=== PATIENT | male | born 1940 | race Two or more races ===

== ENCOUNTER 2024-05-16 08:11 | Inpatient (IN) | payer MEDICARE, OTHER, SELFPAY ==
[2024-05-14 13:32] VITALS: BMI 37.5
[2024-05-14 15:04] LABS: Hematocrit 31.3 % (39.0-52.0); Hemoglobin 9.9 g/dL (13.0-18.0); Mean Corp Hgb Conc. 31.6 g/dL (33.0-37.0); Mean Corpuscular Hgb 29.7 pg (27.0-31.0); Platelet Count 344 10^3/uL (130-400); Red Blood Cell Count 3.33 10^6/uL (4.70-6.10); Red Cell Dist. Width 13.2 % (11.5-14.5); White Blood Cell Count 13.1 10^3/uL (4.8-10.8)
[2024-05-14 15:11] LABS: INR 1.22; PT 15.9 Sec (11.4-14.6)
[2024-05-14 15:12] LABS: APTT 41.8 Sec (23.4-35.0)
[2024-05-14 15:37] LABS: ALT (SGPT) 16 U/L (0-50); AST (SGOT) 18 U/L (17-59); Albumin 3.4 g/dl (3.5-5.0); Alkaline Phosphatase 103 U/L (38-126); Blood Urea Nitrogen 21 mg/dl (9-20); Calcium 8.7 mg/dl (8.4-10.2); Carbon Dioxide 27 mmol/L (22-30); Chloride 101 mmol/L (98-107); Estimated Creatinine Clearance 46 ml/min; Glucose 143 mg/dl (70-99); Potassium 3.8 mmol/L (3.5-5.1); Sodium 137 mmol/L (135-145); Total Bilirubin 0.9 mg/dl (0.2-1.3); Total Protein 6.7 g/dl (6.3-8.2); eGFR 50.49
--- NOTE | 2024-05-15 09:41 | PTCARENOTE ---
Abn Hgb, PTT, Creatinine, Dr. Matt's office made aware.
[2024-05-16] VITALS (15 sets, daily range): BP systolic 131–177; BP diastolic 46–85; BMI 37.5
[2024-05-16] MEDS: HEPARIN 5000 UNITS SC ×2 (08:59→19:33)
[2024-05-16] MEDS: NEURONTIN 300 MG PO (09:00)
[2024-05-16] MEDS: TYLENOL 1000 MG PO (09:00)
[2024-05-16] MEDS: NORMOSOL-R/PLASMALYTE-A 1000 IV (09:01)
--- NOTE | 2024-05-16 09:20 | OR.RPT ---
Operative Report
Operative Report
Date of Operation: May 16, 2024
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
Postoperative Diagnosis: Same
Surgeon: Sang Matt M.D.
Operation: �Right Axillary Lymph Node Dissection - 82164
Anesthesia: General Anesthesia
Estimated Blood Loss: 10 cc
Drains: None
Specimen: Level I & II Axillary Contents
Complications: �None
Procedure:The patient was taken to the operating room and placed in the usual supine position. After adequate general anesthesia was established, the patient's right axillary area was prepped and draped in the usual sterile fashion. The curvilinear
incision was made around the hair-bearing area in the right axilla. The flaps were created medially to the chest wall, inferiorly to the serratus anterior muscle, laterally to the lateral border of the latissimus dorsi muscle, and superiorly to the
axillary vein. Grossly, large lymph nodes were identified. The level I lymph node dissection was performed by dissecting the specimen away from the axillary vein, the chest wall, and the lateral border of the latissimus muscle. The level II lymph
nodes were dissected from under the right pectoralis minor muscle. During this process, long thoracic and thoracodorsal nerves were identified and preserved throughout their courses. The axillary contents in levels I and II were removed and sent to
pathology for evaluation. Hemostasis was obtained. A medium EL drain was placed in the axilla through a separate, inferior stab incision and anchored to the skin using #3-0 Prolene suture. The subcutaneous tissue was reapproximated with # 3-0
Vicryl, and the skin was reapproximated with #4-0 Monocryl in a running subcuticular fashion. The patient tolerated the procedure well. The final instrument, needle, and sponge counts were correct. The patient was transferred to the recovery room.
--- NOTE | 2024-05-16 13:35 | HPS.HSE ---
Family Physician
-
Family Physician: Jeanmarie Rider
Chief Complaint
-
Status post lap abdomen with new liver mets
History of Present Illness
83-year-old male from home states he has been having upper abdominal pain with indigestion since approximately February. His has been having him take Tums stating it is indigestion. He has been sleeping in a recliner approximately since mid
February until present due to inability to lie down, orthopnea, pulse ox consistently low 92-93%. He reports his Lasix was stopped several weeks ago and he has developed increased edema in his left lower extremity compared to right but is still is
bilaterally. He states mid April his abdominal became became severe he drove himself to [facility] where he had a cholecystectomy with postop drain and biopsy showing primary gallbladder cancer. He states drain was removed after 1 week.
While inpatient he did develop JANICE he has been off of his olmesartan and diuretics furosemide since that time. For the past week he has noticed his pulse ox running 85 to 94% approximately at night when he tries to lie down along with leg edema,
orthopnea and shortness of breath. His stopped his olmesartan for the past week. He denies cough, fever, chills, headache, chest pain, palpitations, shortness of breath, abdominal pain, nausea, vomiting, diarrhea, urinary symptoms,, rash,
sick contacts. Today he is Status post Exploratory LAP with findings of LIVER METS and plan for eventual chemotherapy. He follows with Dr. Mcginnis cardiology at [facility] he states he had recent echo and office that was normal. Known history of
PACs unsure history of RBBB which was found on EKG 4 days ago and today. He follows with PCP Dr. Jeanmarie Arellano who practices near [facility]. He has past medical history of hypertension, GERD, chronic memory impairment short-term
worse than long, PACs, gallbladder cancer status post cholecystectomy Dx April 2024 at [facility], ambulatory dysfunction uses cane at baseline, nonrheumatic mitral valve regurg, erectile dysfunction, obesity, diverticulitis with perforation
status post bowel resection 1997, ventral hernia repair with possible mesh.
Medical History
Past Medical History
Past Medical History: Reports Other
Additional Past Medical History:
hypertension
? CHF�diastolic
GERD
chronic memory impairment short-term worse than long
PACs
New liver mets status post lap abdomen today 05/16/2024
NEW Gallbladder cancer status post cholecystectomy Dx April 2024 at [facility]
ambulatory dysfunction uses cane at baseline
nonrheumatic mitral valve regurg
erectile dysfunction
obesity, diverticulitis with perforation status post bowel resection 1997
ventral hernia repair with possible mesh
Past Surgical History: Reports Other
Additional Past Surgical History:
Ventral hernia repair with possible mesh
Appendectomy
Diverticulitis with perforation and colon resection 1997
Status post cholecystectomy secondary to gallbladder cancer April 2024 [facility]
Social History
Tobacco: Non-smoker
Alcohol: None
Drug: None
Personal:
Living: With Family ( Vania)
Employment: Retired
Family History
Family History: Other (No history of cancer. States father complications COPD was heavy smoker, mother history of DM2 unsure why she is )
Allergies / Home Medications
Allergies reflects when Allergies were last updated in [employer].
Home Medications with original date entered in [employer]
Allergy/Medication List:
Allergies
Allergy/AdvReac Type Severity Reaction Status Date / Time
No Known Allergies Allergy Unverified 05/16/24 08:43
Home Medications
acetaminophen 325 mg tablet (Tylenol) 650 mg PO Q4H PRN pain 05/14/24
ibuprofen 200 mg tablet 400 mg PO Q6H PRN pain 05/14/24
olmesartan 40 mg tablet 40 mg PO DAILY 05/14/24
pantoprazole 40 mg tablet,delayed release 40 mg PO DAILY 05/14/24
Review of Systems
-
History Source: Patient
A 12 point ROS was completed and negative except as noted: Yes
Constitutional: Denies Fever or Chills
EENT: Denies Sore Throat
Respiratory: Reports Trouble Breathing and Other (Orthopnea, hypoxia); Denies Cough
Cardiac: Denies Chest Pain, Diaphoresis, Palpitations or Syncope
Abdomen/GI: Denies Abdominal Pain, Nausea, Vomiting, Diarrhea, Constipated, Bloody Stools or Black Stools
: Denies Dysuria, Flank Pain, Incontinence, Difficulty Voiding, Urgency, Bleeding or Dark Urine
Musculoskeletal: Reports Edema (+2 left lower extremity, +1 right lower extremity); Denies Joint Pain
Skin: Denies Itching or Rash
Neurological: Denies Dizzy, Headache, Weakness or Numbness
Endocrine: Reports No Symptoms
Hematologic/Lymphatic: Reports No Symptoms
Psych: Reports Calm
Physical Exam
Vital Signs
Vital Signs
Temp Pulse Resp BP Pulse Ox
97.2 F 84 17 165/65 94
05/16/24 12:15 05/16/24 13:30 05/16/24 13:30 05/16/24 13:15 05/16/24 13:30
Physical Exam
General: Comfortable and Conversant; No Pain, Fever or Chills
HEENT: NormoCephalic, Anicteric, Moist mucous membranes, PERRLA, Garceno Conjunctivae and No Ptosis
Respiratory: Rales (Course bilateral bases right greater than left); No Wheezes or Rhonchi
Cardiac: S1/S2, Regular Rhythm and Peripheral Edema (Bilateral left +2, right +1); No Murmur, Rub, Gallop or JVD
Breast: Deferred by me
GI: Soft, Non Tender, Non Distended, Normal Bowel Sounds and Other (Multiple laparoscopic sites with Dermabond in place no reported abdominal pain)
Genito-urinary: Deferred by me
Musculoskeletal: No Clubbing, No Cyanosis, Edema, Left Lower Extremity (+2) and Edema, Right Lower Extremity (+1); No Edema, Left Upper Extremity or Edema, Right Upper Extremity
Skin: Warm and Dry; No Rash
Neuro: AO x 3 (But reports history of short-term memory impairment), Nonfocal/grossly intact, Cranial Nerves Intact and Other (Chronic [place] has hearing aids at home); No Slurred Speech, Facial Droop, Tremors or Sedated
Psych: Calm
Laboratory Results
-
05/14/24 12:28
05/14/24 12:28
Laboratory Results
PT 15.9 Sec (11.4-14.6) H 05/14/24 12:28
INR 1.22 05/14/24 12:
APTT 41.8 Sec (23.4-35.0) H 05/14/24 12:28
Total Bilirubin 0.9 mg/dl (0.2-1.3) 05/14/24 12:
AST 18 U/L (17-59) 05/14/24 12:28
ALT 16 U/L (0-50) 05/14/24 12:28
Alkaline Phosphatase 103 U/L (38-126) 05/14/24 12:28
Data Reviewed
-
Lab Data: Labs Reviewed by me
Impression/Plan
-
Impression/plan:
Admit to TELE
#Acute hypoxic respiratory insufficiency secondary to Acute CHF possible history chronic CHF
Labs 05/14/2024 WBC 13.1 with INR 1.22
Symptoms of orthopnea, pitting edema to knees x 1 week Home O2 running 85-94%, baseline 92-93% per patient
-Check stat CBC with differential, CMP, BNP
-Check I/O, daily weights
-Consult CBC Cardiology
-Obtain records from Dr. Rahel Dumont including recent echo, EKG
-Check CXR, bnp
-IV Lasix 40 mg now once, currently pending CMP further diuresis per cardiology
Follow CBC, CMP
-Consult PT/OT/case management
#Peripheral edema left greater than right concern for possible DVT
-Check bilateral venous Dopplers
-Will give current heparin subcu if DVT present plan will change
#EKG with RBBB unclear if old
-Obtaining records from Dr. Mcginnis [facility] including EKG and echo
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
-status postcholecystectomy April 2024 [facility] showing primary gallbladder cancer
Obtain records from [facility] April 2024
Patient given preop 2 g Ancef, gabapentin 300 mg once
-Tylenol, oxycodone, Dilaudid, Zofran as needed, bowel regimen
-Consult Oncology- Dr White
-Consult Dr. Sang Matt
-Tylenol, oxycodone moderate pain, Dilaudid severe pain
-Follow CBC, CMP
#JANICE on CKD stage IIIb
Creat 1.4 on 05/14/2024
-Repeat CMP today
#HTN-benign
BP 177/75
-IV hydralazine 5 mg every 6 hours scheduled
-Hold Olmesartan 40 mg daily due to JANICE
#CAD/CO
Last stress test and echo 2021 reportedly negative from [facility]
-Patient used to be on aspirin 81 mg daily unclear when stopped
#HLD
-History of LDL less than 130 no statins were started in the past
#GERD
-Continue Protonix 40 mg daily
#Memory impairment per patient short-term course
-Patient is oriented x 3 however forgetful of some things he states
#Chronic ambulatory dysfunction uses cane at baseline
-Consult PT/OT
#Hx diverticulitis with perforation status post bowel resection 1997
#Class I obesity due to excess calorie consumption�BMI 37.5
Weight loss recommended
Affects all aspects of care
Low-fat healthy heart diet
DVT prophylaxis
Subcutaneous heparin pending venous Doppler bilateral legs
Full code per patient
[2024-05-16 14:41] LABS: % Basophils 0.2 % (0-2); % Immature Granulocytes 0.8 % (0-0.5); % Lymphocytes 2.8 % (20.5-51.1); % Monocytes 2.5 % (1.7-9.3); % Neutrophils 93.7 % (42.2-75.2); Absolute Immature Granulocytes 0.1 10^3/uL (0-0.05); Absolute Lymphocytes 0.4 10^3/uL (1.2-3.4); Absolute Monocytes 0.3 10^3/uL (0.1-0.6); Absolute Neutrophils 12.2 10^3/uL (1.4-6.5); Hematocrit 30.5 % (39.0-52.0); Hemoglobin 9.8 g/dL (13.0-18.0); Mean Corp Hgb Conc. 32.1 g/dL (33.0-37.0); Mean Corpuscular Hgb 30.2 pg (27.0-31.0); Mean Corpuscular Volume 94.1 fL (80.0-94.0); Mean Platelet Volume 10.3 fL (7.4-10.4); Nucleated Red Blood Cells % 0 % (-); Platelet Count 326 10^3/uL (130-400); Red Blood Cell Count 3.24 10^6/uL (4.70-6.10); Red Cell Dist. Width 13.4 % (11.5-14.5)
[2024-05-16 14:53] LABS: ALT (SGPT) 17 U/L (0-50); AST (SGOT) 23 U/L (17-59); Albumin 3.2 g/dl (3.5-5.0); Alkaline Phosphatase 96 U/L (38-126); Blood Urea Nitrogen 22 mg/dl (9-20); Calcium 8.2 mg/dl (8.4-10.2); Carbon Dioxide 27 mmol/L (22-30); Chloride 102 mmol/L (98-107); Estimated Creatinine Clearance 53 ml/min; Glucose 209 mg/dl (70-99); Potassium 4.1 mmol/L (3.5-5.1); Sodium 139 mmol/L (135-145); Total Bilirubin 0.6 mg/dl (0.2-1.3); Total Protein 6.3 g/dl (6.3-8.2); eGFR > 60.00
--- NOTE | 2024-05-16 14:54 | OR.RPT ---
Operative Report
Operative Report
Date of Operation: May 16, 2024
Preoperative Diagnosis: �Gallbladder Cancer - C23
Postoperative Diagnosis: Same
Surgeon: Sang Matt M.D.
Operation: �Laparoscopy - 10729, Resection of the left lateral liver tumor - 34993, and resection of two peritoneal nodules
Anesthesia: General Anesthesia
Estimated Blood Loss: 10 cc
Drains: None
Specimen: two peritoneal nodules and left lateral hepatic tumor
Findings: Extensive adhesion, right-sided abdominal wall tumor, cemented gallbladder fossa and portal area with extreme scarring from his previous cholecystectomy about 1 month ago
Complications: None
Procedure:
The patient was taken to the operating room and placed in the usual supine position. After adequate general endotracheal anesthesia was established, the patient's abdomen was prepped and draped in the usual sterile fashion. There was an obvious hard
mass measuring about 10 cm in diameter was palpated on the right side of the abdomen. At this time, a 1.5 cm incision was made in the left upper quadrant of the abdomen, and then, using the open Donita technique, the abdominal cavity was entered. A
12 mm trocar was placed, and the abdomen was insufflated to 15 millimeters of Hg pressure.
The camera was placed, and significant adhesions were noted throughout the intraperitoneal cavity. Another 5 mm trocar was placed in the right lower quadrant under the direct vision. Dense adhesions were noted in the right upper quadrant of her
abdomen, cementing the 10 cm mass to the abdominal wall, gallbladder fossa, and portal area. There were no obvious planes to dissect. Attempts were made to peel the tumor off the abdominal wall and liver without success. The lysis of adhesions
continued in the left upper quadrant of the abdomen. During this process, several peritoneal nodules were identified. Two of them were biopsied and sent to pathology for a frozen section, which revealed no obvious evidence of malignancy.
There was approximately a 0.5 � 1 cm mass in the left lateral liver lobe identified. This was carefully resected using a harmonic scalpel. The tumor was completely removed and sent to pathology for a frozen section, which also revealed no obvious
evidence of malignancy.
I scrubbed out of the OR to discuss the above findings with the family. I informed them about the right-sided abdominal tumor and extensive scarring involving the abdominal tumor to the abdominal wall, liver, gallbladder fossa, and portal area. I
explained that it is very difficult to figure out what is benign scar tissue versus cancer. We discussed the patient�s two options, which include proceeding with open laparotomy for further exploration versus stopping surgery, obtaining an abdominal
CT to define the abdominal tumor better, perhaps obtaining a core needle biopsy, starting neoadjuvant chemotherapy to give time for scar tissue to resolve, then making another attempt to resect in 3-6 months. The family opted for the latter
approach. I contacted his medical oncologist, Dr. Raimundo Mendoza, who agreed with the plan.
At this time, the trocars were removed. The 12-millimeter trocar site was closed in multiple layers. The fascia was closed using #1 Vicryl in an interrupted fashion. The skin was approximated with #4-0 Monocryl in a running subcuticular fashion. The
5-millimeter trocar site was also closed with #4 Monocryl in a running subcuticular fashion. Steri-strips and band-aides were applied. The patient was extubated. The final needle, sponge, and instrument counts were correct, and the patient was
transferred to the recovery room.
--- NOTE | 2024-05-16 15:24 | CON.CAR ---
Addendum entered and electronically signed by Adolph Irene MD 05/16/24 18:29:
I saw and examined the patient.
The MAINTENANCE JOURNEYMAN's note was reviewed and I agree with the note.
Primary station inspector Dr. Mcginnis
83 yo male with RBBB, HTN, diabetes,(diet-controlled), RBBB,h/oGIB, and gallbladder cancer s/p cholecystectomy 04/06/24 with liver tumor, who is s/p laparoscopic resection of left lateral liver tumor by Dr. Matt 05/16/24. Consulted for edema.
Patient says during his last hospitalization he had concern regarding his kidneys so they removed his antihypertensive medication with diuretic sounds as if he was on combination of olmesartan and HCTZ. Patient's said he had edema when he left
the hospital that got better and his weights were stable then suddenly he was 6 pounds more the day he came in for his surgery. No complaints of increased shortness of breath no chest pain no history of coronary artery disease. Echocardiogram
today shows normal left ventricular function, mild aortic stenosis mild to moderate aortic regurgitation. On exam patient's breathing comfortably without clear evidence of JVD lungs are clear cardiac exam is regular rate and rhythm abdomen is
mildly distended but soft postop from laparoscopic surgery. Extremities bilateral lower extremity edema which includes some posterior thigh edema.
-Edema extremities may be multifactorial. Patient may have come component of heart failure with preserved ejection fraction. Sounds as if he may have had increased edema after being taken off his diuretic during the last hospitalization. Patient
is also on gabapentin which could be a contributing factor.
-Venous ultrasound
-Appears patient's had a good response to IV diuretic that was already given. Monitor weights, I's and O's and renal function. Caution not to overdiuresis in this patient that reported concern regarding his kidneys during the last hospitalization.
Decision regarding additional diuretics based on follow-up labs tomorrow and amount of output with the Lasix 40 mg IV he was given.
-Postoperative care as directed by Dr. Matt
-Patient can follow-up with PCP and Dr. Mcginnis after discharge
Original Note:
Consultation
Consultation Request
Date/Time Consultation Requested: 05/16/24 2:45p
Date/Time Consultation Performed: 05/16/24 3p
Requesting Provider: DIONNE Mcdaniel
Performing Provider: DIONNE Aguirre for Dr. Irene
Reason for Consultation: concern for acute CHF, LE edema
Medical History
-
Chief Complaint: gallbladder cancer with liver tumor
History of Present Illness:
Mr. Araya is an 83 yo male with HTN, diet controlled diabetes, PVCs, RBBB, prior GIB, and gallbladder cancer s/p cholecystectomy 04/06/24 with liver tumor, who is s/p laparoscopic resection of left lateral liver tumor by Dr. Matt 05/16/24. We are
consulted for b/l LE edema, concern for acute CHF. He denies any respiratory symptoms now or as an outpatient. He states being admitted at [facility] last month with RUQ pain, had cholecystectomy, and LLE edema started on Lasix that caused JANICE and
discontinuation of Lasix. He has noticed b/l LE edema returning slowly over the last week. He saw Dr. Mcginnis 05/12/2024 for surgical clearance and no further cardiac testing was ordered.
Past Medical History
Past Medical History: Other (as above)
Past Surgical History: Cholecystectomy
Social History
Tobacco: Non-Smoker
Alcohol: None
Personal:
Living: With Family
Employment: Retired
Family History
Family History: Reviewed & Not Pertinent
Allergies / Home Medications
Allergy/AdvReac Type Severity Reaction Status Date / Time
No Known Allergies Allergy Unverified 05/16/24 08:43
�Medication �Instructions �Recorded �Confirmed �Type
acetaminophen 325 mg tablet 650 mg PO Q4H PRN pain 05/14/24 05/16/24 History
(Tylenol)
ibuprofen 200 mg tablet 400 mg PO Q6H PRN pain 05/14/24 05/16/24 History
olmesartan 40 mg tablet 40 mg PO DAILY 05/14/24 05/16/24 History
pantoprazole 40 mg tablet,delayed 40 mg PO DAILY 05/14/24 05/16/24 History
release
Review of Systems
-
History Source: Patient
All other systems: Negative unless noted
Physical Exam
Vital Signs
Temp Pulse Resp BP Pulse Ox
97.6 F 76 22 160/55 96
05/16/24 15:00 05/16/24 15:00 05/16/24 15:00 05/16/24 14:45 05/16/24 15:00
Lab Results
05/16/24 14:28
05/16/24 14:28
Alh-G-Svahhjdidxq Pept Cancelled 05/16/24 14:41
Physical Exam
General: Well Developed and No Apparent Distress
HEENT: Normocephalic, Anicteric, Moist Mucous Membranes and Other ([place])
Respiratory: Clear and Non Labored Respirations
Cardiac: S1/S2, Regular Rhythm and Peripheral Edema (+2-3 pitting edema b/l LE)
Breast: Deferred by me
GI: Soft, Non Tender and Distended
Rectal: Brown and Deferred by Provider
Musculoskeletal: No Clubbing and No Cyanosis
Skin: Warm and Dry
Neuro: AO x 3
Psych: Calm
Impression / Plan
-
CHF - acute, unknown type/unknown LVEF.
- LE edema.
- CXR with mild CHF and proBNP 5470.
- check echo today.
- agree with IV Lasix.
- close monitoring of renal function.
- daily weights, I&Os.
HTN - elevated post-op.
- continue meds and monitor.
RBBB - chronic, stable.
PVCs/PACs - noted on tele, monitor.
- check echo today.
Gallbladder cancer - s/p cholecystectomy 04/06/24 with liver tumor, who is s/p laparoscopic resection of left lateral liver tumor by Dr. Matt 05/16/24.
- per Dr. Matt.
Data Reviewed
-
EKG: Tracing Personally Visualized and interpreted (SR with PACs 91 bpm, RBBB)
Radiology: Report Reviewed by me (cxr: Patchy parenchymal opacity within both lungs)
Labs: Labs Reviewed by me
[2024-05-16 15:40] LABS: NT-proBNP 5470 pg/ml
[2024-05-16] MEDS: LASIX 40 MG IV (15:57)
[2024-05-16] MEDS: APRESOLINE 5 MG IV (18:26)
--- NOTE | 2024-05-16 19:49 | W.PN.UPDATE ---
Update Note
Progress Note Update
This is an addendum to the H&P written by Maria Luisa Koehler on 05/16/2024. Patient seen and examined independently with THERMODYNAMICIST.
83-year-old male past medical history of CAD, CHF, GERD, chronic memory impairment, gallbladder cancer diagnosed 1 month ago, CKD 3b, hypertension, hyperlipidemia, diverticulitis with perforation status post bowel resection, obesity, here for
persistent abdominal pain.
Patient had his gallbladder removed at [facility] in April for gallbladder cancer. At that time he was noted to have JANICE and diuretics were held.
Patient had diagnostic laparoscopic arranged for today. He underwent diagnostic laparoscopy today and was found to have liver metastases.
Patient has been having increasing pitting edema and was noted by the anesthesiologist to be hypoxemic to 85% when flat. Due to this hospitalist have been requested to admit the patient for concern for heart failure.
Labs show leukocytosis, stable anemia. Cardiac BNP of 5400. Chest x-ray shows patchy parenchymal opacity within both lungs likely clinically pulmonary edema.
Patient given 40 of IV Lasix. Cardiology consulted. Patient has peripheral edema greater on the left side than the right and venous ultrasound negative for DVT.
Oncology consulted for gallbladder cancer with liver metastases. Abdominal pain is secondary to cancer pain which can be treated with Tylenol, oxycodone, Dilaudid.
Patient has elevated blood pressure due to stopping olmesartan last week. Renal function has improved to creatinine 1.2. Hold off on resuming olmesartan at this time due to diuresis. As needed hydralazine for now.
[2024-05-17] VITALS (8 sets, daily range): BP systolic 107–175; BP diastolic 53–65; PULSE 70–71; O2SAT 94; BMI 37.3
[2024-05-17] MEDS: APRESOLINE 5 MG IV ×3 (00:10→13:40)
[2024-05-17 07:30] LABS: % Basophils 0.1 % (0-2); % Immature Granulocytes 0.5 % (0-0.5); % Lymphocytes 8.2 % (20.5-51.1); % Monocytes 10.5 % (1.7-9.3); % Neutrophils 80.7 % (42.2-75.2); Absolute Immature Granulocytes 0.1 10^3/uL (0-0.05); Absolute Lymphocytes 0.8 10^3/uL (1.2-3.4); Absolute Neutrophils 7.3 10^3/uL (1.4-6.5); Hematocrit 27.1 % (39.0-52.0); Hemoglobin 8.9 g/dL (13.0-18.0); Mean Corp Hgb Conc. 32.8 g/dL (33.0-37.0); Mean Corpuscular Hgb 30.2 pg (27.0-31.0); Mean Corpuscular Volume 91.9 fL (80.0-94.0); Mean Platelet Volume 10.7 fL (7.4-10.4); Nucleated Red Blood Cells % 0 % (-); Platelet Count 326 10^3/uL (130-400); Red Blood Cell Count 2.95 10^6/uL (4.70-6.10); Red Cell Dist. Width 13.3 % (11.5-14.5); White Blood Cell Count 9.1 10^3/uL (4.8-10.8)
--- NOTE | 2024-05-17 07:48 | CON.ONC ---
Documented by User: DIONNE Kaur 05/17/24 10:26
Impression
Impression
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
CKD
anemia, unknown baseline
CHF
Plan
Plan
follow for surgical path
[facility] records will be obtained by my office in if pt decides to pursue further OP follow up for next steps in systemic treatment plan with [facility], however, he and his report that the plan to follow up with [facility] medical oncology program for next steps in oncology care.
check iron studies, b12, folate, retic, monitor for bleeding
post operative management per surgical service
CHF per cardiology
Medical oncology will sign off, Pt has OP follow up with [facility] medical oncology next week for continued management
Patient History
History of Present Illness
83yo M with newly diagnosed gallbladder malignancy diagnosed at [facility] who presented with hypoxia from home. He had ongoing indigestion since February 2024 for which he was taking tums and sleeping in a recliner. His abdominal pain became
severe and was admitted to [facility] april 2024. He underwent a cholecystectomy which pathology was diagnostic for gallbladder cancer (I do not have pathology report to confirm). His post operative course has been complicated by JANICE,
increasing LE edema, and hypoxia. 2D echo with LVEF 55-60%. B/L LE US negative for DVT. He underwent a diagnostic exploratory lap with Dr. Sang Matt 05/16/2024 that showed extensive adhesion, right-sided abdominal wall tumor, cemented gallbladder fossa
and portal area with extreme scarring from his previous cholecystectomy about 1 month ago. He had a resection of the left lateral tumor and 2 peritoneal nodules.
CBC today reveal WBC 9.1, Hgb 8.9, MCV 91.9, platelets 326,000, unknown Hgb baseline. CMP yesterday with Creatinine 1.2 and normal LFTS.
Clinically, he reports post operative pain for which he is taking tylenol.
at bedside during visit.
Past-Medical/Surgical History
PMH CAD, CHF, GERD, chronic memory impairment, gallbladder cancer, CKD 3b, hypertension, hyperlipidemia, diverticulitis, obesity
PSH cholecystectomy Apr 2024, laparoscopic resection left lever tumor 05/16/2024, bowel resection for perforation/diverticulitis 1997, ventral hernia repair, appendectomy
Social non-smoker, denies ETOH or recreational drugs. Retired,
Patient Medication
�Medication �Instructions �Recorded �Confirmed �Last Taken �Type
acetaminophen 325 mg tablet 650 mg PO Q4H PRN pain 05/14/24 05/16/24 05/15/24 History
(Tylenol)
ibuprofen 200 mg tablet 400 mg PO Q6H PRN pain 05/14/24 05/16/24 05/12/24 History
olmesartan 40 mg tablet 40 mg PO DAILY 05/14/24 05/16/24 05/14/24 History
pantoprazole 40 mg tablet,delayed 40 mg PO DAILY 05/14/24 05/16/24 05/14/24 History
release
Active Medications
Generic Name Dose Route Start Last Admin
Trade Name Freq PRN Reason Stop Dose Admin
Acetaminophen 650 mg 05/16/24 15:00
Acetaminophen 325 Mg Tablet PO 05/17/24 14:59
SDS-Q4HPRN PRN
mild pain
Acetaminophen 650 mg 05/16/24 14:46
Acetaminophen 325 Mg Tablet PO 06/13/24 14:45
Q4HPRN PRN
mild pain/ARTHUR/temp> 100.4F
Heparin Sodium 5,000 units 05/16/24 20:00 05/16/24 19:33
Heparin 5,000 Units/Ml 1 Ml Vial SC 06/13/24 19:59 5,000 units
Q12 YEVGENIY Administration
Hydralazine HCl 5 mg 05/16/24 18:00 05/17/24 06:00
Hydralazine 20 Mg/Ml Vial IV 06/13/24 17:59 5 mg
Q6 YEVGENIY Administration
Hydromorphone HCl 0.5 mg 05/16/24 08:14
Hydromorphone 0.5 Mg/0.5 Ml Syringe IV 05/17/24 08:14
PACU-Q5MPRN PRN
severe pain
Hydromorphone HCl 0.25 mg 05/16/24 08:14
Hydromorphone 0.25 Mg/0.5 Ml Syringe IV 05/17/24 08:14
PACU-Q5MPRN PRN
moderate pain
Hydromorphone HCl 0.5 mg 05/16/24 14:46
Hydromorphone 0.5 Mg/0.5 Ml Syringe IV 05/30/24 14:45
Q4HPRN PRN
severe pain
Parenteral Electrolytes 1,000 mls @ 100 mls/hr 05/16/24 08:15
Normosol-R/Plasmalyte-A IV 05/17/24 08:14
PER PROTOCOL YEVGENIY
Parenteral Electrolytes 1,000 mls @ 50 mls/hr 05/16/24 13:00 05/16/24 21:08
Normosol-R/Plasmalyte-A IV 05/17/24 08:59 Not Given
SDS-ONCE ONE
Meperidine HCl 12.5 mg 05/16/24 08:14
Meperidine 25 Mg/Ml Injection IV 05/17/24 08:14
PACU-Q5MPRN PRN
shivers
Ondansetron HCl 4 mg 05/16/24 08:14
Ondansetron 4 Mg/2 Ml Vial IV 05/17/24 08:14
PACU-ONCEPRN PRN
nausea/vomiting
Ondansetron HCl 4 mg 05/16/24 13:00
Ondansetron 4 Mg/2 Ml Vial IV 05/17/24 12:59
SDS-ONCEPRN PRN
nausea/vomiting
Ondansetron HCl 4 mg 05/16/24 14:46
Ondansetron 4 Mg/2 Ml Vial IV 06/13/24 14:45
Q6HPRN PRN
nausea and vomiting
Oxycodone HCl 5 mg 05/16/24 13:00
Oxycodone 5 Mg Regular Release Tablet PO 05/17/24 12:59
SDS-Q4HPRN PRN
moderate pain
Oxycodone HCl 10 mg 05/16/24 13:00
Oxycodone 10 Mg Regular Release Tablet PO 05/17/24 12:59
SDS-Q4HPRN PRN
severe pain
Oxycodone HCl 5 mg 05/16/24 14:46
Oxycodone 5 Mg Regular Release Tablet PO 05/30/24 14:45
Q4HPRN PRN
moderate pain
Pantoprazole Sodium 40 mg 05/17/24 08:00
Pantoprazole 40 Mg Delayed Release Tablet PO 06/14/24 07:59
DAILY YEVGENIY
Polyethylene Glycol 17 grams 05/17/24 08:00
Polyethylene Glycol Powder 17 Grams Packet PO 06/14/24 07:59
DAILY YEVGENIY
Prochlorperazine Edisylate 5 mg 05/16/24 08:14
Prochlorperazine 10 Mg/2 Ml Vial IV 05/17/24 08:14
PACU-ONCEPRN PRN
nausea/vomiting
Sodium Chloride 0 flush 05/16/24 16:00
Sodium Chloride 0.9% (Flush) Syringe IV 06/13/24 15:59
PER PROTOCOL YEVGENIY
Review of Systems
-
ROS notable for HPI, otherwise negative
Physical Exam
-
General: No Apparent Distress
HEENT: Moist Mucous Membranes; Negative Jaundice
Cardiology: Normal Sinus Rhythm
Pulmonary: Clear
GI: Soft and Distended
Extremities: Pulses Present and Edema (b/l LE)
Neurology: Non Focal and Other (forgetful)
Skin: Warm and Other (ab exlap site c/d/i)
Hematologic / Lymphatic: No Lymphadenopathy
Psych: Calm
Labs
Lab Results
WBC 9.1 10^3/uL (4.8-10.8) 05/17/24 06:47
RBC 2.95 10^6/uL (4.70-6.10) L 05/17/24 06:47
Hgb 8.9 g/dL (13.0-18.0) L 05/17/24 06:47
Hct 27.1 % (39.0-52.0) L 05/17/24 06:47
MCV 91.9 fL (80.0-94.0) 05/17/24 06:47
MCH 30.2 pg (27.0-31.0) 05/17/24 06:47
MCHC 32.8 g/dL (33.0-37.0) L 05/17/24 06:47
RDW 13.3 % (11.5-14.5) 05/17/24 06:47
Plt Count 326 10^3/uL (130-400) 05/17/24 06:47
MPV 10.7 fL (7.4-10.4) H 05/17/24 06:47
Abs Immat Gran (auto) 0.1 10^3/uL (0-0.05) H 05/17/24 06:47
Absolute Neuts (auto) 7.3 10^3/uL (1.4-6.5) H 05/17/24 06:47
Absolute Lymphs (auto) 0.8 10^3/uL (1.2-3.4) L 05/17/24 06:47
Absolute Monos (auto) 1.0 10^3/uL (0.1-0.6) H 05/17/24 06:47
Absolute Eos (auto) 0.0 10^3/uL (0-0.7) 05/17/24 06:47
Absolute Basos (auto) 0.0 10^3/uL (0-0.2) 05/17/24 06:47
Immature Gran % 0.5 % (0-0.5) 05/17/24 06:47
Neutrophils % 80.7 % (42.2-75.2) H 05/17/24 06:47
Lymphocytes % 8.2 % (20.5-51.1) L 05/17/24 06:47
Monocytes % 10.5 % (1.7-9.3) H 05/17/24 06:47
Eosinophils % 0.0 % (0-6) 05/17/24 06:47
Basophils % 0.1 % (0-2) 05/17/24 06:47
Creatinine 1.2 mg/dL (0.7-1.3) 05/16/24 14:28
Vital Signs
Vital Signs
Temp Pulse Resp BP Pulse Ox
97.4 F 63 17 107/53 90
05/17/24 03:00 05/17/24 03:00 05/17/24 03:00 05/17/24 03:00 05/17/24 03:00

Documented by User: Joy Saeed MD 05/17/24 14:55
Plan
Plan
follow for surgical path
[facility] records will be obtained by my office in if pt decides to pursue further OP follow up for next steps in systemic treatment plan with [facility], however, he and his report that the plan to follow up with [facility] medical oncology program for next steps in oncology care.
check iron studies, b12, folate, retic, monitor for bleeding
post operative management per surgical service
CHF per cardiology
Medical oncology will sign off, Pt has OP follow up with [facility] next week for continued management
ATTENDING ADDENDUM
Pt seen and examined, chart reviewed.
Pt following closely with Dr. Johnston at [facility], they live 20 minutes from his office and will follow up there.
Anemia attributable to inflammatory state and recent surgery.
Iron studies consistent with inflammatory state rather than deficiency.
No objection to d/c.
[2024-05-17 08:03] LABS: ALT (SGPT) 16 U/L (0-50); AST (SGOT) 22 U/L (17-59); Albumin 2.9 g/dl (3.5-5.0); Alkaline Phosphatase 86 U/L (38-126); Blood Urea Nitrogen 26 mg/dl (9-20); Calcium 8.4 mg/dl (8.4-10.2); Carbon Dioxide 28 mmol/L (22-30); Chloride 103 mmol/L (98-107); Estimated Creatinine Clearance 53 ml/min; Glucose 244 mg/dl (70-99); HDL Cholesterol 32 mg/dl; LDL Cholesterol, Calculated 95 mg/dl; Magnesium 1.8 mg/dl (1.6-2.3); Potassium 4.2 mmol/L (3.5-5.1); Sodium 140 mmol/L (135-145); Total Bilirubin 0.3 mg/dl (0.2-1.3); Total Cholesterol 155 mg/dl (50-199); Total Protein 5.9 g/dl (6.3-8.2); Triglyceride 144 mg/dl (10-149); Very Low Density Lipoprotein 28 mg/dl (0-30); eGFR > 60.00
[2024-05-17] MEDS: PROTONIX 40 MG PO (08:24)
[2024-05-17 08:27] LABS: Iron 42 ug/dl (49-181)
[2024-05-17] MEDS: MIRALAX PO (08:29)
[2024-05-17 08:36] LABS: Percent Saturation 25 % (20-50); Total Iron Binding Capacity 167 ug/dl (261-462)
[2024-05-17 08:47] LABS: Reticulocyte Count 2.1 % (0.4-2.8)
[2024-05-17 08:57] LABS: Glycohemoglobin (HgbA1c) 7.5 % (4.0-5.6)
[2024-05-17] MEDS: HEPARIN 5000 UNITS SC (10:03)
[2024-05-17] MEDS: MIRALAX 17 GRAMS PO ×2 (10:11→10:12)
[2024-05-17 10:38] LABS: Folate 9.6 ng/ml (2.76-20); Vitamin B12 616 pg/ml (239-931)
--- NOTE | 2024-05-17 13:20 | W.PN.CD ---
Today's Communication / Plan
-
IV diuresis
Education
Co-pay check for SGLT2
Impression / Plan
-
Acute on chronic HFpEF
- LE edema, CXR c/w HF, and proBNP 5470.
- IV diuresis => at discharge daily loop diuretic
- Check co-pay of SGLT2-I
- Education
- Na+/Fluid restriction
HTN
Valve disease: mild-mod AR, mild , mild MR
RBBB
Low grade ectopy: PVCs/PACs
Metastatic gallbladder cancer, Surgery by Dr. Matt, has Oncology f/u arranged
BMI 37
Subjective: No CP and minimal dyspnea
Echo 05/16/2024:
Normal left ventricular size and systolic function.
LV ejection fraction is 55-60%.
Mild mitral regurgitation.
Mild aortic stenosis.
Mild to moderate aortic regurgitation.
No prior study available for comparison.
Physical Exam
Vital Signs/Labs
Vital Signs
Temp Pulse Resp BP Pulse Ox
97.8 F 70 16 155/55 94
05/17/24 11:20 05/17/24 11:20 05/17/24 11:20 05/17/24 11:20 05/17/24 11:20
05/16/24 05/17/24 05/18/24
06:59 06:59 06:59
Actual Weight 101.605 kg
05/17/24 06:47
05/17/24 06:47
PT 15.9 Sec (11.4-14.6) H 05/14/24 12:28
INR 1.22 05/14/24 12:28
APTT 41.8 Sec (23.4-35.0) H 05/14/24 12:28
Magnesium 1.8 mg/dl (1.6-2.3) 05/17/24 06:47
Triglycerides 144 mg/dl (10-149) 05/17/24 06:47
LDL Cholesterol, Calc 95 mg/dl 05/17/24 06:47
VLDL Cholesterol, Calc 28 mg/dl (0-30) 05/17/24 06:47
HDL Cholesterol 32 mg/dl 05/17/24 06:47
05/16/24 05/16/24
14:28 14:41
Oex-N-Zleroavbcer Pept 5470 Cancelled
Physical Exam
Constitutional: No acute distress
EENT: Anicteric
Cardiovascular: Rhythm & rate is regular and Pedal edema present (2+ soft pitting to near Knees)
Respiratory: Respiratory effort normal and Crackles Present
GI: Soft and Distention absent
Neuro/Psych: Alert
Data Reviewed
-
Date of Service: May 17, 2024
--- NOTE | 2024-05-17 13:36 | W.PN.HOSP.TC ---
Today's Communication/Plan
-
CW IV lasix
Assessment / Plan
Assessment / Plan
#Acute hypoxic respiratory insufficiency secondary to Acute CHF possible ;history chronic CHF
Symptoms of orthopnea, pitting edema to knees x 1 week Home O2 running 85-94%, baseline 92-93% per patient
-Elevated BNP
-CXR Patchy parenchymal opacity within both lungs, with main differential considerations of atelectasis and/or pneumonia, and/or pulmonary edema.
-Recently lasix was stopped
-CBC Cardiology following
-Obtain records from Dr. [facility] including recent echo, EKG
- CW IV lasix for another day and follow response , wt, LE edema
- Today on RA
-Consult PT/OT/case management
#Peripheral edema left greater than right concern for possible DVT
-Neg bilateral venous Dopplers
#EKG with RBBB unclear if old
-Obtaining records from Dr. Rahel Tinoco [facility] including EKG and echo
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
-status postcholecystectomy April 2024 [facility] showing primary gallbladder cancer
Obtain records from [facility] April 2024
Patient given preop 2 g Ancef, gabapentin 300 mg once
-Tylenol, oxycodone, Dilaudid, Zofran as needed, bowel regimen
-Consulted Oncology
-Consulted Dr. Sang Matt
-Tylenol, oxycodone moderate pain, Dilaudid severe pain
-Follow CBC, CMP
#Renal insufficiency ?CKD stage IIIb. No JANICE based on available data
Creat 1.4 on 05/14/2024
Cr 1.2 today
#HTN-benign
BP 177/75
-On IV hydralazine 5 mg every 6 hours scheduled - make it PRN while on diuretics
- Hold Olmesartan 40 mg daily due to JANICE
- Consider BB with hx of CAD for HTN management
#CAD/AK
Last stress test and echo 2021 reportedly negative from [facility]
-Patient used to be on aspirin 81 mg daily unclear when stopped
#HLD
-History of LDL less than 130 no statins were started in the past
#GERD
-Continue Protonix 40 mg daily
#Memory impairment per patient short-term course
-Patient is oriented x 3 however forgetful of some things he states
#Chronic ambulatory dysfunction uses cane at baseline
-Consult PT/OT
#Hx diverticulitis with perforation status post bowel resection 1997
#Class I obesity due to excess calorie consumption�BMI 37.5
Weight loss recommended
Affects all aspects of care
Low-fat healthy heart diet
DVT prophylaxis
Post liver resection -hold Heparin for 24 hr ;seq teds for now
DW RN
DW Cardiology
Total time spent on today's encounter was 52 minutes which included time spent in counseling the patient/family regarding diagnosis and treatment plan as listed above, goals of care, and symptom management. Case was discussed with nursing staff,
specialists, and care coordinators/case management. All labs and imaging personally reviewed by me. Remainder the time spent in detailed review of previous records, lab data, imaging, and other medical provider documentation.
Full code per patient
Anticipated Discharge: 24 - 48 hours
Subjective/Interval History
-
Date of Service: May 17, 2024
Denies N/V
Abdo pain is ok
No CP or SOB
Objective Data
-
Labs:
Laboratory Results
05/17/24
06:47
WBC 9.1
Hgb 8.9 L
Hct 27.1 L
Plt Count 326
Sodium 140
Potassium 4.2
Chloride 103
Carbon Dioxide 28
BUN 26 H
Creatinine 1.2
Glucose 244 H
Calcium 8.4
Total Bilirubin 0.3
AST 22
ALT 16
Alkaline Phosphatase 86
Vital Signs:
Vital Signs
Temp Pulse Resp BP Pulse Ox
97.8 F 70 16 155/55 94
05/17/24 11:20 05/17/24 11:20 05/17/24 11:20 05/17/24 11:20 05/17/24 11:20
I&O
05/16/24 05/17/24 05/18/24
06:59 06:59 06:59
Intake Total 150 / 150
Output Total 75 / 75
Balance 75 / 75
Review of Systems
-
Constitutional: Denies Fever
EENT: Denies Sore Throat
Respiratory: Denies Cough
Neuro: Denies Dizzy
Physical Exam
-
General: Comfortable
Respiratory: Crackles (Bibasal) and Non Labored Respirations; Negative Wheezes or Accessory Resp Muscle Use
Cardiac: Regular Rhythm and S1/S2
GI: Soft and Normal Bowel Sounds
Musculoskeletal: Edema, Right Lower Extrem (1+ BL) and Edema, Left Lower Extrem
Neuro: AO x 3
Psych: Calm; Negative Confused
Data Reviewed
-
Labs: Labs Reviewed by me
[2024-05-17] MEDS: LASIX 40 MG IV ×2 (13:40→17:58)
--- NOTE | 2024-05-17 14:52 | CM ---
IA completed with pt at bedside.
Pt is an 83yr old male admitted for exploratory Lap that showed Gallbladder CA with mets to the liver.
Pt lives with his in a 2 story home with 1 step to enter and a 1st floor living set up.
Pt indep with ADLs and mobility with the use of a cane around the house and in the community.
Pt has never been to a SNF, and acknowledges previous use with [facility] but could not remember who it was that he used.
Pt notes that his as expressed the need
PCP; Jeanmarie Rider
Pharm; [facility]
PLAN; Home with [facility]
[2024-05-17] MEDS: TYLENOL 650 MG PO (17:48)
--- NOTE | 2024-05-17 18:27 | PTCARENOTE ---
pt abdomen appears more distended than earlier. asked for pain meds, decreased bowel sounds, small BM today, Notified Dr. Page
[2024-05-18 03:57] VITALS: BP 137/61
[2024-05-18 05:53] LABS: % Basophils 0.3 % (0-2); % Eosinophils 0.3 % (0-6); % Immature Granulocytes 0.5 % (0-0.5); % Lymphocytes 10.4 % (20.5-51.1); % Monocytes 10.9 % (1.7-9.3); % Neutrophils 77.6 % (42.2-75.2); Absolute Immature Granulocytes 0.1 10^3/uL (0-0.05); Absolute Lymphocytes 1.2 10^3/uL (1.2-3.4); Absolute Monocytes 1.2 10^3/uL (0.1-0.6); Absolute Neutrophils 8.8 10^3/uL (1.4-6.5); Hematocrit 27.9 % (39.0-52.0); Mean Corp Hgb Conc. 32.3 g/dL (33.0-37.0); Mean Corpuscular Hgb 30.1 pg (27.0-31.0); Mean Corpuscular Volume 93.3 fL (80.0-94.0); Mean Platelet Volume 10.9 fL (7.4-10.4); Nucleated Red Blood Cells % 0 % (-); Platelet Count 329 10^3/uL (130-400); Red Blood Cell Count 2.99 10^6/uL (4.70-6.10); Red Cell Dist. Width 13.6 % (11.5-14.5); White Blood Cell Count 11.4 10^3/uL (4.8-10.8)
[2024-05-18 06:20] LABS: ALT (SGPT) 15 U/L (0-50); AST (SGOT) 20 U/L (17-59); Alkaline Phosphatase 98 U/L (38-126); Blood Urea Nitrogen 36 mg/dl (9-20); Calcium 8.1 mg/dl (8.4-10.2); Carbon Dioxide 30 mmol/L (22-30); Chloride 102 mmol/L (98-107); Estimated Creatinine Clearance 49 ml/min; Glucose 164 mg/dl (70-99); Sodium 142 mmol/L (135-145); Total Bilirubin 0.4 mg/dl (0.2-1.3); Total Protein 5.8 g/dl (6.3-8.2); eGFR 55.19
[2024-05-18 06:28] VITALS: BMI 37.0
[2024-05-18 07:10] VITALS: BP 163/64
[2024-05-18] MEDS: PROTONIX 40 MG PO (07:40)
[2024-05-18] MEDS: LASIX 40 MG IV (07:40)
[2024-05-18] MEDS: TYLENOL 650 MG PO (07:40)
[2024-05-18 11:30] VITALS: BP 134/60
--- NOTE | 2024-05-18 12:14 | W.PN.CD ---
Addendum entered and electronically signed by Stone Cuevas MD 05/18/24 12:28:
I updated Dr. Mcginnis via [email or web address] message.
Original Note:
Today's Communication / Plan
-
I am OK if he goes home back on daily Lasix
He should see his guest services manager Dr. Mcginnis for heart failure management within the next week. Should have a BMP in 1-2 weeks with results to his PCP and his Cardiolgist
Still has significant edema and he knows the goal is diuresis to remove the edema
Impression / Plan
-
Acute on chronic HFpEF
- LE edema, CXR c/w HF, and proBNP 5470.
- IV diuresis => at discharge daily loop diuretic
- Check co-pay of SGLT2-I (not back yet), Dr. Mcginnis can add as an outpatient.
- MRA (Aldactone) can be added later as well
- Education
- Na+/Fluid restriction
HTN
Valve disease: mild-mod AR, mild , mild MR
RBBB
Low grade ectopy: PVCs/PACs
Metastatic gallbladder cancer, Surgery by Dr. Matt, has Oncology f/u arranged
BMI 37
Subjective: No CP and minimal dyspnea
Echo 05/16/2024:
Normal left ventricular size and systolic function.
LV ejection fraction is 55-60%.
Mild mitral regurgitation.
Mild aortic stenosis.
Mild to moderate aortic regurgitation.
No prior study available for comparison.
Physical Exam
Vital Signs/Labs
Vital Signs
Temp Pulse Resp BP Pulse Ox
98.4 F 84 16 163/64 91
05/18/24 07:10 05/18/24 07:40 05/18/24 07:10 05/18/24 07:40 05/18/24 07:35
05/17/24 05/18/24 05/19/24
06:59 06:59 06:59
Actual Weight 101.605 kg 100.726 kg
05/18/24 04:13
05/18/24 04:13
PT 15.9 Sec (11.4-14.6) H 05/14/24 12:28
INR 1.22 05/14/24 12:28
APTT 41.8 Sec (23.4-35.0) H 05/14/24 12:28
Magnesium 1.8 mg/dl (1.6-2.3) 05/17/24 06:47
Triglycerides 144 mg/dl (10-149) 05/17/24 06:47
LDL Cholesterol, Calc 95 mg/dl 05/17/24 06:47
VLDL Cholesterol, Calc 28 mg/dl (0-30) 05/17/24 06:47
HDL Cholesterol 32 mg/dl 05/17/24 06:47
05/16/24 05/16/24
14:28 14:41
Fvd-T-Uoqhnjfybiw Pept 5470 Cancelled
Physical Exam
Constitutional: No acute distress
EENT: Anicteric
Cardiovascular: Rhythm & rate is regular and Pedal edema present (still 2-3+)
Respiratory: Respiratory effort normal and Lungs clear to auscul.
GI: Soft and Distention absent
Neuro/Psych: AO x 3
Data Reviewed
-
Date of Service: May 18, 2024
--- NOTE | 2024-05-18 13:45 | W.PN.HOSP.TC ---
Today's Communication/Plan
-
DC
Assessment / Plan
Assessment / Plan
#Acute hypoxic respiratory insufficiency secondary to Acute CHF possible ;history chronic CHF
Symptoms of orthopnea, pitting edema to knees x 1 week Home O2 running 85-94%, baseline 92-93% per patient
-Elevated BNP
-CXR Patchy parenchymal opacity within both lungs, with main differential considerations of atelectasis and/or pneumonia, and/or pulmonary edema.
-Recently lasix was stopped
-CBC Cardiology following
-Improved maintain off of oxygen.
-Cardiology ok for DC from their standpoint on Lasix.
- PT/OT/case management-recommends home health
#Peripheral edema left greater than right concern for possible DVT
-Neg bilateral venous Dopplers
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
-status postcholecystectomy April 2024 [facility] showing primary gallbladder cancer
Obtain records from [facility] April 2024
Patient given preop 2 g Ancef, gabapentin 300 mg once
-Tylenol, oxycodone, Dilaudid, Zofran as needed, bowel regimen
-Consulted Oncology -input noted -follow with primary Onc
-Follow up Dr. Sang Matt. Tolerating diet
#Renal insufficiency ?CKD stage IIIb. No JANICE based on available data
Creat 1.4 on 05/14/2024
Cr 1.3 today
#HTN-benign
- Improved
- Hold Olmesartan 40 mg daily due to JANICE and now need of lasix
- DW pt and -will switch to oral amlodipine for BP management -agreeable
#CAD/[place]
Last stress test and echo 2021 reportedly negative from [facility]
-Patient used to be on aspirin 81 mg daily unclear when stopped
#HLD
-History of LDL less than 130 no statins were started in the past
#GERD
-Continue Protonix 40 mg daily
#Memory impairment per patient short-term course
-Patient is oriented x 3 however forgetful of some things he states
#Chronic ambulatory dysfunction uses cane at baseline
-Consult PT/OT
#Hx diverticulitis with perforation status post bowel resection 1997
#Class I obesity due to excess calorie consumption�BMI 37.5
Weight loss recommended
Affects all aspects of care
Low-fat healthy heart diet
DW RN
DW Cardiology today
Medically stable for discharge.
Discussed with regarding medication changes and follow-up plan.
Total time of discharge 32 minutes
Anticipated Discharge: Today
Subjective/Interval History
-
Date of Service: May 18, 2024
Tolerating diet. Had a small bowel movement yesterday. He thinks he will have 1 more this afternoon.
Denies shortness of breath. Off of oxygen.
No chest pain.
No fever or chills.
Objective Data
-
Labs:
Laboratory Results
05/18/24
04:13
WBC 11.4 H
Hgb 9.0 L
Hct 27.9 L
Plt Count 329
Sodium 142
Potassium 4.0
Chloride 102
Carbon Dioxide 30
BUN 36 H
Creatinine 1.3
Glucose 164 H
Calcium 8.1 L
Total Bilirubin 0.4
AST 20
ALT 15
Alkaline Phosphatase 98
Vital Signs:
Vital Signs
Temp Pulse Resp BP Pulse Ox
98.3 F 69 16 134/60 93
05/18/24 11:30 05/18/24 11:30 05/18/24 11:30 05/18/24 11:30 05/18/24 11:30
I&O
05/17/24 05/18/24 05/19/24
06:59 06:59 06:59
Intake Total 150 / 150 960 / 960
Output Total 75 / 75 1440 / 1440 120 / 120
Balance 75 / 75 -480 / -480 -120 / -120
Review of Systems
-
Constitutional: Denies Fever
EENT: Denies Sore Throat
Respiratory: Denies Cough
Neuro: Denies Dizzy
Physical Exam
-
General: Comfortable
Respiratory: Non Labored Respirations; Negative Wheezes, Crackles or Accessory Resp Muscle Use
Cardiac: Regular Rhythm and S1/S2; Negative Tachycardic
GI: Soft, Nontender and Other (trocar areas without bleeding )
Musculoskeletal: Edema, Left Lower Extrem (1+)
Neuro: AO x 3
Psych: Calm
Data Reviewed
-
Labs: Labs Reviewed by me
--- NOTE | 2024-05-18 15:11 | CM ---
CM reviewed chart and spoke with pts s/p dc.
Explain role and discussed [facility]- requesting SN/PT with [facility] as pt has worked with them in the past.
Referral sent via [facility] to [facility].
== END 2024-05-18 14:48 | disposition home health service (06) | DRG 420 ==
LOC: 2 SOUTH 08:11
PROVIDERS: Clinical Nurse Specialist Family Health; ADMITTING PHYSICIAN Surgery; ATTENDING PHYSICIAN Internal Medicine; CONSULT PHYSICIAN Internal Medicine Cardiovascular Disease; FAMILY PHYSICIAN Family Medicine; OTHER PHYSICIAN Internal Medicine Hematology & Oncology
PROC: 0FB24ZX Excision of Left Lobe Liver, Percutaneous Endoscopic Approach, Diagnostic (ICD-10-PCS; 2024-05-16)
PROC: 0FN44ZZ Release Gallbladder, Percutaneous Endoscopic Approach (ICD-10-PCS; 2024-05-16)
PROC: 0DBW4ZX Excision of Peritoneum, Percutaneous Endoscopic Approach, Diagnostic (ICD-10-PCS; 2024-05-16)
DX: C23 Malignant neoplasm of gallbladder (principal); I50.33 Acute on chronic diastolic (congestive) heart failure; C78.7 Secondary malignant neoplasm of liver and intrahepatic bile duct; I13.0 Hypertensive heart and chronic kidney disease with heart failure and stage 1 through stage 4 chronic kidney disease, or unspecified chronic kidney disease; N17.9 Acute kidney failure, unspecified; R06.01 Orthopnea; K30 Functional dyspepsia; R60.9 Edema, unspecified; I45.10 Unspecified right bundle-branch block; N18.32 Chronic kidney disease, stage 3b; K21.9 Gastro-esophageal reflux disease without esophagitis; N52.9 Male erectile dysfunction, unspecified; R26.2 Difficulty in walking, not elsewhere classified; R09.02 Hypoxemia; K66.0 Peritoneal adhesions (postprocedural) (postinfection); K82.8 Other specified diseases of gallbladder; R06.89 Other abnormalities of breathing; E11.22 Type 2 diabetes mellitus with diabetic chronic kidney disease; I35.1 Nonrheumatic aortic (valve) insufficiency; I25.10 Atherosclerotic heart disease of native coronary artery without angina pectoris; R41.3 Other amnesia; E78.5 Hyperlipidemia, unspecified; I49.3 Ventricular premature depolarization; D64.9 Anemia, unspecified; E66.811 Obesity, class 1; I25.2 Old myocardial infarction; Z68.37 Body mass index [BMI] 37.0-37.9, adult; Z87.19 Personal history of other diseases of the digestive system; Z83.3 Family history of diabetes mellitus; Z90.49 Acquired absence of other specified parts of digestive tract; Z82.5 Family history of asthma and other chronic lower respiratory diseases
CPT/HCPCS: 88305; 88332; 36415; 71045; 80053; 80061; 82607; 82728; 82746; 83036; 83540; 83550; 83735; 83880; 85025; 85027; 85045; 85610; 85730; 86850; 86900; 86901; 87040; 88331; 88341; 88342; 93005; 93306; 93970; 97162; 97166; C1776